=== PATIENT | female | born 1995 | race Caucasian/White ===

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

== ENCOUNTER 2018-03-25 12:53 | Emergency (ER) | payer MEDICAID ==
[2018-03-25 13:25] VITALS: O2SAT 100
[2018-03-25 14:19] LABS: SQUAMOUS EPITHIAL 9 /hpf (0-5); URINE BACTERIA OCC (<OCC); URINE BILIRUBIN NEGATIVE (NEGATIVE); URINE BLOOD 1+ (NEGATIVE); URINE CLARITY Hazy (Clear); URINE COLOR Yellow (YELLOW); URINE GLUCOSE (UA) NORMAL (Normal); URINE LEUKOCYTE ESTERASE NEG Leu/uL (Negative); URINE PROTEIN 1+ mg/dL (NEGATIVE); URINE UROBILINOGEN NORMAL mg/dL (0.2-1.0)
[2018-03-25 14:21] LABS: HCG,QUALITATIVE URINE NEGATIVE (NEGATIVE)
[2018-03-25] MEDS ORDERED: Sodium Chloride 0.9% 1,000 ML IV STA ×2 (14:23→15:51)
--- NOTE | 2018-03-25 14:44 | RAD ---
HISTORY: fever, syncope COMPARISON: Chest x-ray performed 04/17/13 TECHNIQUE: Chest PA and lateral FINDINGS: LUNGS: No focal consolidation. PLEURA: No significant pleural effusion identified. No definite pneumothorax . CARDIOVASCULAR: Heart size appears within normal limits. No atherosclerotic calcification present. OSSEOUS STRUCTURES: No acute osseous abnormality identified. VISUALIZED UPPER ABDOMEN: Unremarkable. OTHER FINDINGS: None. IMPRESSION: No focal consolidation.
[2018-03-25] MEDS ORDERED: Sodium Chloride 0.9% 1,000 ML ONE ×2 (14:46→16:02)
[2018-03-25 15:03] LABS: BASO % 0.1 % (0.0-2.0); HEMOGLOBIN 11.6 g/dL (11.0-16.0); LYMPH # 0.4 K/uL (1.0-4.3); LYMPH % 4.2 % (20.0-40.0); MEAN CELL VOLUME 89.7 fL (81.0-99.0); MEAN CORPUSCULAR HEMOGLOBIN 30.3 pg (27.0-31.0); MEAN CORPUSCULAR HGB CONC 33.8 g/dL (33.0-37.0); MEAN PLATELET VOLUME 7.4 fL (7.2-11.7); MONO # 0.8 K/uL (0.0-0.8); MONO % 9.2 % (0.0-10.0); NEUT # 7.4 K/uL (1.8-7.0); NEUT % 86.5 % (50.0-75.0); PLATELET COUNT 212 K/uL (130-400); RBC 3.84 Mil/uL (3.80-5.20); RED CELL DISTRIBUTION WIDTH 13.2 % (11.5-14.5); WHITE BLOOD COUNT 8.5 K/uL (4.8-10.8)
[2018-03-25 15:22] LABS: LYMPHOCYTE 3 % (20-40); TOTAL CELLS COUNTED 100
[2018-03-25 15:23] LABS: ALB/GLOB RATIO 1.4 (1.0-2.1); ALBUMIN 4.3 g/dL (3.5-5.0); ALT/SGPT 48 U/L (9-52); ANISOCYTOSIS SLIGHT; AST/SGOT 32 U/L (14-36); BLOOD UREA NITROGEN 11 mg/dL (7-17); CALCIUM 8.6 mg/dl (8.6-10.4); GFR NON-AFRICAN AMERICAN > 60; HYPOCHROMIC SLIGHT; MONOCYTE 8 % (0-10); NEUTROPHIL 89 % (50-75); PLATELET ESTIMATE NORMAL (NORMAL); POIKILOCYTOSIS SLIGHT
[2018-03-25 15:44] VITALS: BP 102/69; PULSE 88; RESP 16; TEMP 99.8
[2018-03-25 15:44] LABS: CK-MB < 0.22 ng/mL (0.0-3.38)
[2018-03-25] MEDS ORDERED: Potassium Chloride 20 mEq/15 ml LIQ UD PO STA (15:50)
[2018-03-25] MEDS ORDERED: Potassium Chloride 20 mEq ER Tab PO ONE (16:17)
--- NOTE | 2018-03-25 17:44 | C.PDOC ---
History Of Present Illness 22 year old female presents to the ED for evaluation of generalized body pain to her joints and lower back. Patient also reports throat swelling. She reports chest tightness and shortness of breath when she is lying down at night. Patient is also complaining of lower abdominal pain, and states she is currently on her menstrual cycle. Patient began feeling lightheaded and brief syncope-like episode while in ED waiting room. Patient denies chest pain, dizziness, vomiting, diarrhea. Time Seen by Provider: 03/25/18 13:51 Chief Complaint (Nursing): Flu-like Symptoms History Per: Patient History/Exam Limitations: no limitations Onset/Duration Of Symptoms: Hrs Past Medical History Reviewed: Historical Data, Nursing Documentation, Vital Signs Vital Signs: Last Vital Signs Temp 99.8 F H 03/25/18 15:44 Pulse 88 03/25/18 15:44 Resp 16 03/25/18 15:44 BP 102/69 03/25/18 15:44 Pulse Ox 100 03/25/18 15:44 - Medical History PMH: Anemia Surgical History: No Surg Hx Family History: States: Unknown Family Hx - Social History Hx Tobacco Use: No Hx Alcohol Use: No Hx Substance Use: No - Immunization History Hx Tetanus Toxoid Vaccination: Yes Hx Influenza Vaccination: Yes Hx Pneumococcal Vaccination: No Review Of Systems Cardiovascular: Negative for: Chest Pain Gastrointestinal: Positive for: Abdominal Pain. Negative for: Vomiting, Diarrhea Musculoskeletal: Positive for: Back Pain (lower ), Other (generalized body aches ) Neurological: Negative for: Dizziness Physical Exam - Physical Exam Appears: Non-toxic, No Acute Distress Skin: Normal Color, Warm, Dry Head: Atraumatic, Normacephalic Eye(s): bilateral: Normal Inspection Ear(s): Bilateral: TM Obscured By Wax Nose: Normal, No Discharge Oral Mucosa: Moist Throat: Erythema, No Exudate, Other (tonsillar edema ) Neck: Supple Chest: Symmetrical, No Deformity, No Tenderness Cardiovascular: Rhythm Regular, No Murmur Respiratory: Normal Breath Sounds, No Rales, No Rhonchi, No Wheezing Gastrointestinal/Abdominal: Soft, No Tenderness, No Guarding, No Rebound Extremity: Normal ROM, Capillary Refill (less than 2 seconds ) Neurological/Psych: Oriented x3, Normal Speech, Normal Cognition ED Course And Treatment - Laboratory Results Result Diagrams: 03/25/18 14:56 03/25/18 14:56 Lab Results: D-Dimer, Quantitative < 200 ng/mlDDU (0-243) 03/25/18 14:56 Troponin I < 0.0120 ng/mL (0.00-0.120) 03/25/18 14:56 Total Bilirubin 0.4 mg/dL (0.2-1.3) 03/25/18 14:56 AST 32 U/L (14-36) 03/25/18 14:56 ALT 48 U/L (9-52) 03/25/18 14:56 Alkaline Phosphatase 65 U/L (38-126) 03/25/18 14:56 Total Protein 7.5 g/dL (6.3-8.3) 03/25/18 14:56 Albumin 4.3 g/dL (3.5-5.0) 03/25/18 14:56 Globulin 3.2 gm/dL (2.2-3.9) 03/25/18 14:56 Albumin/Globulin Ratio 1.4 (1.0-2.1) 03/25/18 14:56 Urine Color Yellow (YELLOW) 03/25/18 13:59 Urine Clarity Hazy (Clear) 03/25/18 13:59 Urine pH 5.0 (5.0-8.0) 03/25/18 13:59 Ur Specific [place] 1.030 (1.003-1.030) 03/25/18 13:59 Urine Protein 1+ mg/dL (NEGATIVE) H 03/25/18 13:59 Urine Glucose (UA) Normal mg/dL (Normal) 03/25/18 13:59 Urine Ketones Negative mg/dL (NEGATIVE) 03/25/18 13:59 Urine Blood 1+ (NEGATIVE) H 03/25/18 13:59 Urine Nitrate Negative (NEGATIVE) 03/25/18 13:59 Urine Bilirubin Negative (NEGATIVE) 03/25/18 13:59 Urine Urobilinogen Normal mg/dL (0.2-1.0) 03/25/18 13:59 Ur Leukocyte Esterase Neg [place]/uL (Negative) 03/25/18 13:59 Urine WBC (Auto) 3 /hpf (0-5) 03/25/18 13:59 Urine RBC (Auto) 6 /hpf (0-3) H 03/25/18 13:59 Ur Squamous Epith Cells 9 /hpf (0-5) H 03/25/18 13:59 Urine Bacteria Occ (<OCC) H 03/25/18 13:59 Urine HCG, Qual Negative (NEGATIVE) 03/25/18 13:59 Urine HCG, Qual Negative (NEGATIVE) 03/25/18 13:59 O2 Sat by Pulse Oximetry: 100 (on RA ) Pulse Ox Interpretation: Normal - Other Rad CXR X-Ray: Viewed By Me, Read By Radiologist Interpretation: HISTORY: fever, syncope. COMPARISON: Chest x-ray performed 04/17/13. TECHNIQUE: Chest PA and lateral. FINDINGS: LUNGS: No focal consolidation. PLEURA: No significant pleural effusion identified. No definite pneumothorax . CARDIOVASCULAR: Heart size appears within normal limits. No atherosclerotic calcification present. OSSEOUS STRUCTURES: No acute osseous abnormality identified. VISUALIZED UPPER ABDOMEN: Unremarkable. OTHER FINDINGS: None. IMPRESSION: No focal consolidation. Progress Note: Bloodwork, urinalysis, Flu swab, CXR, EKG ordered and reviewed. Flu swab is negative. Postassium Chloride Oral solution and IV Fluids given. On reassessment, patient is resting comfortably, showing no signs of distress and is stable for discharge. Patient is advised to follow up with PMD within 1-2 days for further evaluation. Advised to return to the ED if symptoms persist or worsen. Disposition - Disposition Disposition: HOME/ ROUTINE Disposition Time: 17:42 Condition: STABLE Additional Instructions: Follow up with PMD within 1-2 days. Return to Ed if feel worse. Prescriptions: Ibuprofen [Motrin Tab] 400 mg PO Q8 #30 tab Oseltamivir Cap [Tamiflu] 75 mg PO BID #10 cap Instructions: Viral Syndrome (DC) Forms: [employer] ([place]), Work Excuse - Clinical Impression Clinical Impression: Influenza-like illness, Vasovagal syncope - PA / POUCH MAKER / Resident Statement MD/DO has reviewed & agrees with the documentation as recorded. - Scribe Statement The provider has reviewed the documentation as recorded by the Scribe (Elina Benitez) All medical record entries made by the Scribe were at my direction and personall y dictated by me. I have reviewed the chart and agree that the record accurately reflects my personal performance of the history, physical exam, medical decision making, and the department course for this patient. I have also personally directed, reviewed, and agree with the discharge instructions and disposition.
--- NOTE | 2018-03-27 05:53 | CARD ---
APPROVED REPORT Date of service: 03/25/2018 EKG Measurement Heart [id number] <Conclusion> Sinus tachycardia Otherwise normal ECG
== END 2018-03-25 18:10 | disposition home or self-care (01) ==
LOC: C.ER 12:53
DX: J11.1 Influenza due to unidentified influenza virus with other respiratory manifestations (principal); R55 Syncope and collapse
CPT/HCPCS: 71046; 80053; 81001; 82550; 82553; 82948; 84484; 84703; 85025; 85378; 87804; 93005; 96360; 96361; 99285; J7030